=== PATIENT | female | born 1990 | race Two or more races ===

== ENCOUNTER 2021-04-12 16:34 | Outpatient (CLI) | payer OTHER | END 2021-04-12 16:44 | disposition home or self-care (01) | LOC: LAB 16:34 | PROVIDERS: ATTEND Internal Medicine Hematology & Oncology | DX: D68.8 Other specified coagulation defects (principal); D47.3 Essential (hemorrhagic) thrombocythemia; D68.0 Von Willebrand disease; D50.0 Iron deficiency anemia secondary to blood loss (chronic); N93.8 Other specified abnormal uterine and vaginal bleeding; D68.32 Hemorrhagic disorder due to extrinsic circulating anticoagulants ==

== ENCOUNTER 2022-07-18 15:09 | Outpatient (CLI) | payer OTHER | END 2022-07-18 15:11 | disposition home or self-care (01) | LOC: LAB 15:09 | PROVIDERS: ATTEND Internal Medicine Hematology & Oncology | DX: D68.8 Other specified coagulation defects (principal); D68.09 Other von Willebrand disease; D50.0 Iron deficiency anemia secondary to blood loss (chronic); N93.8 Other specified abnormal uterine and vaginal bleeding; D47.3 Essential (hemorrhagic) thrombocythemia; D68.32 Hemorrhagic disorder due to extrinsic circulating anticoagulants ==

== ENCOUNTER → 2023-05-31 08:09 | Outpatient (CLI) | payer OTHER ==
[2023-05-31 09:00] LABS: HEMATOCRIT 38.6 % (36.0-45.00); HEMOGLOBIN 13.1 g/dL (12.0-15.00); MEAN CELL VOLUME 88.5 fL (80.00-100.00); MEAN CORPUSCULAR HGB CONC 33.9 g/dl (32.0-36.0); PLATELET COUNT 487 K/uL (150-450); RED BLOOD COUNT 4.36 M/uL (4.00-6.00); RED CELL DISTRIBUTION WIDTH 13.1 % (11.5-14.5)
[2023-05-31 09:49] LABS: ALBUMIN 3.8 gm/dL (3.4-5.0); BILIRUBIN TOTAL 0.81 mg/dL (0.3-1.2); CALCIUM 9.4 mg/dL (8.5-10.1); CREATININE SERUM 0.73 mg/dL (0.55-1.02); GFR 91.81; GLOBULINA 3.5 G/DL (2.4-3.5); POTASSIUM 4.32 mEq/L (3.5-5.1); TOTAL PROTEIN 7.3 gm/dL (6.4-8.2)
[2023-05-31 10:01] LABS: INR 1.03; PARTIAL THROMBOPLASTIN TIME 30.9 SECONDS (22.0-34.0); PROTHROMBIN TIME 10.8 SECONDS (9.0-11.5)
[2023-05-31 10:03] LABS: COL EPI 111 SECONDS (82-175)
[2023-06-01 14:43] LABS: MANUAL PLATELET COUNT 752
[2023-06-01 14:44] LABS: PLATELET ESTIMATE INCREASED (NORMAL)
== END | disposition home or self-care (01) ==
LOC: LAB 08:09
PROVIDERS: ATTEND Internal Medicine Hematology & Oncology
DX: D68.01 Von Willebrand disease, type 1 (principal); D50.0 Iron deficiency anemia secondary to blood loss (chronic); N93.8 Other specified abnormal uterine and vaginal bleeding; D47.3 Essential (hemorrhagic) thrombocythemia; D68.32 Hemorrhagic disorder due to extrinsic circulating anticoagulants; D69.3 Immune thrombocytopenic purpura; D50.8 Other iron deficiency anemias; R79.9 Abnormal finding of blood chemistry, unspecified; I10 Essential (primary) hypertension; R74.02 Elevation of levels of lactic acid dehydrogenase [LDH]; K76.89 Other specified diseases of liver; D68.8 Other specified coagulation defects; D69.1 Qualitative platelet defects

== ENCOUNTER 2023-12-31 14:44 | Outpatient (CLI) | payer OTHER ==
[2023-12-31 15:29] LABS: HEMATOCRIT 38.3 % (36.0-45.00); HEMOGLOBIN 12.9 g/dL (12.0-15.00); MEAN CELL VOLUME 90.2 fL (80.00-100.00); MEAN CORPUSCULAR HEMOGLOBIN 30.5 pg (27.00-32.0); MEAN CORPUSCULAR HGB CONC 33.8 g/dl (32.0-36.0); PLATELET COUNT 459 K/uL (150-450); RED BLOOD COUNT 4.24 M/uL (4.00-6.00)
[2023-12-31 15:52] LABS: COL EPI 127 SECONDS (82-175)
[2023-12-31 15:53] LABS: INR 1.03; PARTIAL THROMBOPLASTIN TIME 29.7 SECONDS (22.0-34.0); PROTHROMBIN TIME 11.2 SECONDS (9.0-11.5)
[2023-12-31 16:04] LABS: ALBUMIN 3.9 gm/dL (3.4-5.0); ALKALINE PHOSPHATASE 60 U/L (50-136); ALT/SGPT 19 U/L (12-78); ANION GAP 8 (10.0-20.0); AST/SGOT 10 U/L (15-37); BILIRUBIN TOTAL 0.47 mg/dL (0.3-1.2); BLOOD UREA NITROGEN 10 mg/dL (7-18); BUN CREA RATIO 14 (7.0-25.0); CALCIUM 9.1 mg/dL (8.5-10.1); CARBON DIOXIDE 27 mEq/L (21-32); CHLORIDE 108 mmol/L (98-107); CREATININE SERUM 0.69 mg/dL (0.55-1.02); GFR 97.98; GLOBULINA 3.5 G/DL (2.4-3.5); GLUCOSE FASTING 80 mg/dL (65-100); LDH 162 U/L (84-246); OSMOLALITY SERUM 276 MOSM/KG (275-295); POTASSIUM 3.69 mEq/L (3.5-5.1); SODIUM 139 mmol/L (136-145); TOTAL PROTEIN 7.4 gm/dL (6.4-8.2)
[2024-01-01 12:17] LABS: FOLIC ACID 19.95 ng/ml (4.78-20)
[2024-01-03 15:11] LABS: FACTOR VIII ACTIVITY 60 % (56-140); VON WILLERBRAND ACTIVITY 52 % (50-200); VON WILLERBRAND ANTIGEN 67 % (50-200)
== END 2023-12-31 14:55 | disposition home or self-care (01) ==
LOC: LAB 14:44
PROVIDERS: ATTEND Internal Medicine Hematology & Oncology
DX: D68.01 Von Willebrand disease, type 1 (principal); D50.0 Iron deficiency anemia secondary to blood loss (chronic); N39.8 Other specified disorders of urinary system; D47.3 Essential (hemorrhagic) thrombocythemia; D68.32 Hemorrhagic disorder due to extrinsic circulating anticoagulants; D69.3 Immune thrombocytopenic purpura; I10 Essential (primary) hypertension; R74.02 Elevation of levels of lactic acid dehydrogenase [LDH]; K76.89 Other specified diseases of liver; D50.8 Other iron deficiency anemias; D68.8 Other specified coagulation defects